=== PATIENT | male | born 1940 | race Native Hawaiian/Other Pacific Islander ===

== ENCOUNTER 2020-02-19 13:41 | Day surgery (SDC) | payer MEDICARE, OTHER | END 2020-02-19 23:23 | disposition home or self-care (01) | LOC: US 13:41 | DX: D18.01 Hemangioma of skin and subcutaneous tissue (principal) | CPT/HCPCS: 38505; 76942; 88305 ==

== ENCOUNTER 2021-12-20 09:08 | Day surgery (SDC) | payer MEDICARE, OTHER ==
[~2021-12-20] VITALS: Ht 172.7 cm; Wt 77.1 kg
[~2021-12-20 09:08] MED LIST: Aspir 8181 MG PO
--- NOTE | 2021-12-20 11:09 | NUR ---
12/20/21 1109 Rupesh Aguirre 5ML'S 2% LIDOCAINE WITH EPI 1:100,000 MIXED 1:1 WITH 5 ML'S INJ NACL TO ACHIEVE SOLUTION OF 1% LIDOCAINE WITH EPI 1:200,000. 1.5 ML'S OF SOLUTION INJ INTO OPSITE AT [address] BRYSON.
== END 2021-12-20 13:00 | disposition home or self-care (01) ==
LOC: ORSCSDS 09:08
PROVIDERS: Otolaryngology
PROC: 0PBB0ZZ Excision of Left Clavicle, Open Approach (ICD-10-PCS; principal; 2021-12-20 10:30)
DX: D18.09 Hemangioma of other sites (principal)
CPT/HCPCS: 88305; 93005; 93010; J1100; J2250; J2405; J2704; J3010; J7120

== ENCOUNTER 2024-11-05 13:01 | Day surgery (SDC) | payer MEDICARE, OTHER ==
[~2024-11-05] VITALS: Ht 172.7 cm; Wt 72.8 kg
[~2024-11-05 13:01] MED LIST changes: +Balanced Salt Epinephrine Irrigation Solution 500 mL IR SCH; +Diazepam 2 MG Tab PO PRN; +Lidocaine HCl/Pf 1% 5 ML VIAL XX SCH; +Moxifloxacin HCL 0.5 MG/0.1 ML 0.4MLSYR LEFTEYE SCH; +Ondansetron 4 MG SoluTab MM PRN; +PHENYLEPHRINE\\TROPICAMIDE\\TETRACAINE OPHTHALMIC DILATING SOLN LEFTEYE PRN; +Povidone-Iodine 450 DROP/30 ML Solution LEFTEYE SCH; +Triamcinolone Inj Susp 40 MG / ML 1ML Vial INJ SCH; +Triamcinolone Inj Susp 40 MG / ML 1ML Vial ONE; +diazePAM 2 MG,diazePAM 5 MG PO SCH
[2024-11-05] MEDS ORDERED: FISH OIL 1,0001 EA10 PO (13:47)
[2024-11-05] MEDS ORDERED: Midazolam HCl 1MG / ML 2ML Vial ONE (13:53)
[2024-11-05] MEDS ORDERED: Tetracaine HCl 0.5% Opth Soln 15 ml XX ONE (14:00)
[2024-11-05] MEDS ORDERED: propofoL 20 ML IV ONE (14:03)
[2024-11-05 14:45] VITALS: BP 108/55
--- NOTE | 2024-11-05 15:25 | NUR ---
11/05/24 1525 Mary Kate Sousa D/Solo INSTRUCTIONS GIVEN TO PT, UNDERSTANDING VERBALIZED. PT GIVEN EYE KIT & BELONGINGS RETURNED TO PT, INCLUDING CELL PHONE & GLASSES. PT DENIES PAIN/NAUSEA, TOLERATING JUICE W/O COMPLAINT. PT AMBULATING TO PT PICKUP ENTRANCE WHERE HE WILL BE DRIVEN HOME BY FRIEND. STEADY GAIT NOTED. NO VISIBLE SIGNS OF DISTRESS NOTED.
== END 2024-11-05 15:23 | disposition home or self-care (01) ==
LOC: ORSCSDS 13:01
PROVIDERS: Ophthalmology
PROC: 08RK3JZ Replacement of Left Lens with Synthetic Substitute, Percutaneous Approach (ICD-10-PCS; principal; 2024-11-05 14:30)
DX: H25.813 Combined forms of age-related cataract, bilateral (principal); Z79.899 Other long term (current) drug therapy
CPT/HCPCS: J2250; J2704; J3301; V2632

== ENCOUNTER 2024-11-26 10:21 | Day surgery (SDC) | payer MEDICARE, OTHER ==
[~2024-11-26] VITALS: Ht 167.6 cm; Wt 72.7 kg
[~2024-11-26 10:21] MED LIST changes: -Diazepam 2 MG Tab PO PRN; +FISH OIL 1,0001 EA10 PO; -Moxifloxacin HCL 0.5 MG/0.1 ML 0.4MLSYR LEFTEYE SCH; +Moxifloxacin HCL 0.5 MG/0.1 ML 0.4MLSYR RIGHTEYE SCH; -Ondansetron 4 MG SoluTab MM PRN; -PHENYLEPHRINE\\TROPICAMIDE\\TETRACAINE OPHTHALMIC DILATING SOLN LEFTEYE PRN; +PHENYLEPHRINE\\TROPICAMIDE\\TETRACAINE OPHTHALMIC DILATING SOLN RIGHTEYE PRN; -Povidone-Iodine 450 DROP/30 ML Solution LEFTEYE SCH; +Povidone-Iodine 450 DROP/30 ML Solution ONE; +Povidone-Iodine 450 DROP/30 ML Solution RIGHTEYE SCH; +Tetracaine HCl/Pf 0.5% Opth Soln 4 ml ONE; -diazePAM 2 MG,diazePAM 5 MG PO SCH
[2024-11-26] MEDS ORDERED: Midazolam HCl 1MG / ML 2ML Vial ONE ×2 (12:04→13:05)
[2024-11-26] MEDS ORDERED: FentaNYL Citrate 50 MCG/ML 2 ML Injection ONE ×2 (12:04→13:05)
[2024-11-26] MEDS ORDERED: Metoclopramide HCl 5MG / ML 2ML Vial ONE (12:43)
[2024-11-26] MEDS ORDERED: Citric Acid/Sodium Citrate 30 ML BTL ONE (12:43)
[2024-11-26] MEDS ORDERED: NS 500 ML IV ONE (13:13)
--- NOTE | 2024-11-26 13:15 | NUR ---
[facility]24 [facility] IV REGLAN GIVEN OVER [address] SHABAZZ VERBAL ORDER. DILUTED WITH 8 CC OF NS AND 2 CC OF MIXTURE GIVEN EVERY 2 MINUTES PER INSTRUCTED BY DR SHABAZZ. MEDICINE STARTED AT 1257, COMPLETED AT 1307. BICITRA GIVEN PER DR SHABAZZ'S ORDERS
[2024-11-26 13:43] VITALS: BP 132/69
== END 2024-11-26 13:58 | disposition home or self-care (01) ==
LOC: ORSCSDS 10:21
PROVIDERS: Ophthalmology
PROC: 08RJ3JZ Replacement of Right Lens with Synthetic Substitute, Percutaneous Approach (ICD-10-PCS; principal; 2024-11-26 12:00)
DX: H25.811 Combined forms of age-related cataract, right eye (principal); Z96.1 Presence of intraocular lens; I10 Essential (primary) hypertension; I25.10 Atherosclerotic heart disease of native coronary artery without angina pectoris
CPT/HCPCS: A9270; J2250; J2765; J3010; J3301; V2632